=== PATIENT | female | born 1985 | race Caucasian/White ===

== ENCOUNTER 2024-11-28 18:49 | Emergency (ER) | payer OTHER, SELFPAY ==
[2024-11-28] VITALS (8 sets, daily range): BP systolic 99–116; BP diastolic 61–83; PULSE 74–89; RESP 18–20; TEMP 36.3–37.2; O2SAT 99–100; BMI 25.5
--- NOTE | 2024-11-28 19:35 | CT_ITS ---
PROCEDURE INFORMATION: Exam: CT Abdomen And Pelvis With Contrast Exam date and time: 11/28/2024 8:39 PM Age: 39 years old Clinical indication: Abdominal pain; Other: Rlq; Additional info: Rlq abd pain TECHNIQUE: Imaging protocol: Computed tomography of the abdomen and pelvis with contrast. Radiation optimization: All CT scans at this facility use at least one of these dose optimization techniques: automated exposure control; mA and/or kV adjustment per patient size (includes targeted exams where dose is matched to clinical indication); or iterative reconstruction. Contrast material: ISOVUE; Contrast volume: 75 ml; Contrast route: IV; COMPARISON: No relevant prior studies available. FINDINGS: Liver: Normal. No mass. Gallbladder and biliary ducts: Normal. No calcified stones. No ductal dilation. Pancreas: Normal. No ductal dilation. Spleen: The spleen demonstrates punctate calcifications, consistent with remote granulomatous organism exposure. Adrenal glands: Normal. No mass. Kidneys and ureters: Normal. No hydronephrosis. Stomach and bowel: Constipation Appendix: Normal appendix (series 3, image [id number]). Intraperitoneal space: Mild amount of free fluid in the pelvis Vasculature: Unremarkable. No abdominal aortic aneurysm. Lymph nodes: Unremarkable. No enlarged lymph nodes. Urinary bladder: Unremarkable as visualized. Reproductive: 4.4 cm simple cyst right ovary. Differential includes infection and torsion. If torsion is suspected, recommend duplex assessment of the ovary. Bones/joints: Unremarkable. No acute fracture. Soft tissues: Unremarkable. IMPRESSION: 1. 4.4 cm simple cyst right ovary. Differential includes infection and torsion. If torsion is suspected, recommend duplex assessment of the ovary. 2. Normal appendix (series 3, image [id number]). 3 mild amount of free fluid in the pelvis THIS REPORT CONTAINS FINDINGS THAT MAY BE CRITICAL TO PATIENT CARE. The findings were verbally communicated via telephone conference with Charlie Mahmood at 9:55 PM EST on 11/28/2024. The findings were acknowledged and understood.
--- NOTE | 2024-11-28 19:40 | ED_ITS ---
Discharge Plan Disposition Patient Disposition: Home, Self-Care Prescriptions Prescriptions: New ondansetron 4 mg tablet,disintegrating 4 mg PO Q6H PRN (Reason: nausea and vomiting) 5 Days Qty: 20 0RF nitrofurantoin monohyd/m-cryst 100 mg capsule 100 mg PO BID 5 Days Qty: 10 0RF Rx Instructions: must administer with a meal/food hydrocodone-acetaminophen 5-325 mg tablet 1 tab PO Q6H PRN (Reason: pain) 3 Days Qty: 12 0RF Referrals Follow up/Referrals: Calli Donaldson DO [Staff Physician] - See instructions Sandra Emmanuel [Primary Care Provider] - See instructions Activity Restrictions/Add. Instructions Additional Instructions/Restrictions: You have a 4 cm hemorrhagic cyst that is likely the cause of your symptoms. No evidence of ovarian torsion as discussed however if you have intermittent severe pain that is intolerable please return to the emergency department otherwise follow-up closely with Dr. Donaldson. Please call tomorrow to make next available appointment. Clinical Impressions Clinical Impression: Abdominal pain, RLQ, Hemorrhagic ovarian cyst, UTI (urinary tract infection) Instructions Patient Instructions: DI for Acute Abdominal Pain Print Language Print Language: [place] Discharge ED Provider: Charlie Mahmood General Adult HPI General Chief complaint: Abdominal Pain Stated complaint: abdominal pain Time Seen by Provider: 11/28/24 19:28 Mode of Arrival: Ambulatory Source of Information: Patient Limitations: No Limitations Description of Symptoms (Recalled from ER Triage Doc. by RN): Pt here w/ c/o RLQ pain + nausea since 1500 today. Pain rated 8/10. tylenol @ 1800 History of Present Illness HPI narrative: Patient is a 39-year-old female presenting today with right lower quadrant abdominal pain. States this started earlier this afternoon around 3 PM and was sudden onset. Time of onset to time of maximal intensity was only a matter of minutes. Since that time it has been severe worsening with any type of movement or touch. No history of ovarian cyst that she is aware of she has not had an appendectomy she has had a cholecystectomy but has all of her other organs otherwise. She denies any fevers frequency urgency dysuria of urine hematuria changes in bowel movement changes in vaginal discharge or vaginal bleeding. No other significant past medical history aside from seasonal allergies. Related Data Previous Rx's ?Medication ?Instructions ?Recorded hydrocodone 5 mg-acetaminophen 325 1 tab PO Q6H PRN pain 3 days #12 11/28/24 mg tablet tabs nitrofurantoin 100 mg PO BID 5 days #10 caps 11/28/24 monohydrate/macrocrystals 100 mg capsule ondansetron 4 mg disintegrating 4 mg PO Q6H PRN nausea and 11/28/24 tablet vomiting 5 days #20 tabs Allergies Allergy/AdvReac Type Severity Reaction Status Date / Time erythromycin base Allergy Unknown Verified 11/28/24 19:38 allergy reaction [facility] Disclaimer: The information contained in this section may have been updated after the patient was seen, as this information can be updated by other users. Social History Smoking Status: Current every day smoker alcohol intake: never current occupational status: other Travel in the last 8 weeks: None ROS Obtained: Yes All systems reviewed & no additional complaints except as documented Physical Exam General General appearance: alert and in no apparent distress Respiratory Respiratory exam: Present normal lung sounds bilaterally Cardiovascular Cardiovascular exam: Present regular rate and normal rhythm Abdominal Exam Abdominal exam: Present soft and tenderness (Patient has significant tenderness to the right lower quadrant she does have rebound particularly when palpating the left lower quadrant and also significant pain with any type of movement in her lower extremities) Neurological Exam Neurological exam: Present alert and oriented X3 Medical Decision Making Medical Records Screening: Per USPSTF and CDC recommendations, given the prevalence of disease in our region, it is our hospital?s policy to screen for HIV and viral Hepatitis for all patients aged 18 and over and those with ongoing risk factors. Antoni Inquiry Pt receiving controlled substance: No Vital Signs: 11/28/24 18:51 11/28/24 20:01 11/28/24 20:30 Temperature 98.9 F Temperature Source Oral Pulse Rate 74 81 Pulse Rate [Apical] 89 Respiratory Rate 20 Blood Pressure 99/64 L 101/63 L Blood Pressure [Right Arm] 115/83 Blood Pressure Mean [Right Arm] 93 02 Sat by Pulse Oximetry 100 99 100 Oxygen Delivery Method Room Air 11/28/24 21:00 11/28/24 22:00 11/28/24 22:30 Temperature Temperature Source Pulse Rate 74 76 89 Pulse Rate [Apical] Respiratory Rate Blood Pressure 111/61 110/74 116/72 Blood Pressure [Right Arm] Blood Pressure Mean [Right Arm] 02 Sat by Pulse Oximetry 100 100 99 Oxygen Delivery Method 11/28/24 23:00 Temperature Temperature Source Pulse Rate 79 Pulse Rate [Apical] Respiratory Rate Blood Pressure 102/67 L Blood Pressure [Right Arm] Blood Pressure Mean [Right Arm] 02 Sat by Pulse Oximetry 99 Oxygen Delivery Method Lab Data Lab results reviewed: Yes I reviewed the patient's lab results. Lab Results 11/28/24 19:42: Urine Color Yellow, Urine Appearance Clear, Urine pH 6.0, Ur Specific [place] 1.015, Urine Protein Trace, Urine Glucose (UA) Trace, Urine Ketones Negative, Urine Blood 1+ A, Urine Nitrate Positive A, Urine Bilirubin Negative, Urine Urobilinogen 4.0, Ur Leukocyte Esterase Negative, Urine RBC 50- 100, Urine WBC 3-5, Ur Squamous Epith Cells 5-10, Urine Bacteria 2+, Urine Mucus 1+ 11/28/24 19:54: WBC 11.0 H, RBC 4.49, Hgb 14.0, Hct 40.2, MCV 89.5, MCH 31.2, MCHC 34.8, RDW 12.0, Plt Count 236, MPV 10.3, Neut % (Auto) 67.1, Lymph % (Auto) 26.1, Thomas % (Auto) 5.3, Eos % (Auto) 0.5, Baso % (Auto) 0.6, Neut # (Auto) 7.4, Lymph # (Auto) 2.9, Thomas # (Auto) 0.6, Eos # (Auto) 0.1, Baso # (Auto) 0.1, S odium 134 L, Potassium 4.0, Chloride 103, Carbon Dioxide 22, Anion Gap 13.0, BUN 9, Creatinine 0.80, Estimated Creat Clear 105, Estimated GFR 79, Est GFR ( Amer) 96, Glucose 95, Calcium 9.0, Total Bilirubin 1.2, AST 29, ALT 20, Alkaline Phosphatase 53, Total Protein 7.2, Albumin 4.4, Globulin 2.8, Albumin/Globulin Ratio 1.6, Serum HCG, Qual Negative 11/28/24 19:54 11/28/24 19:54 Orders (Tests/Meds): ED MEDICATIONS Discontinued Medications Generic Name Dose Route Start Last Admin Trade Name Freq PRN Reason Stop Dose Admin Acetaminophen 1,000 mg 11/28/24 19:35 11/28/24 19:47 Acetaminophen 1,000mg/100ml Vial IV 11/28/24 19:36 1,000 mg ONCE ONE Administration Lactated Ringer's 1,000 mls @ 999 mls/hr 11/28/24 19:45 11/28/24 19:45 Lactated Ringer's 1000 Ml Bag IV 11/28/24 20:45 999 mls/hr .Q1H1M WYATT Administration Iopamidol 75 ml 11/28/24 20:40 11/28/24 20:41 Iopamidol-370 (76%);100ml Bottle IV 11/28/24 20:41 75 ml ONCE ONE Administration Morphine Sulfate 4 mg 11/28/24 22:12 11/28/24 22:17 Morphine 4mg/Ml Syringe IV 11/28/24 22:13 4 mg ONCE ONE Administration Ondansetron HCl 4 mg 11/28/24 19:35 11/28/24 19:45 Ondansetron 4mg/2ml Vial IV 11/28/24 19:36 4 mg ONCE ONE Administration Ondansetron HCl 4 mg 11/28/24 22:12 11/28/24 22:16 Ondansetron 4mg/2ml Vial IV 11/28/24 22:13 4 mg ONCE ONE Administration Sodium Chloride 10 ml 11/28/24 20:40 11/28/24 20:41 Sodium Chloride 0.9% 10ml Syr (Rad Only) IV 11/28/24 20:41 10 ml ONCE ONE Administration ORDERS Category Date Time Status CT abdomen pelvis w con Stat Cat Scan 11/28/24 19:35 Completed US transvaginal Stat Exams 11/28/24 20:47 Completed CBC w/Auto Diff [Complete Blood Count Auto Diff] Stat Lab 11/28/24 19:54 Completed CMP [Comprehensive Metabolic Panel] Stat Lab 11/28/24 19:54 Completed HCG Qualitative, Serum Stat Lab 11/28/24 19:54 Completed UA [Urinalysis and Microscopic] Stat Lab 11/28/24 19:42 Completed Urine Culture Stat Micro 11/28/24 19:42 Received Medical Decision Narrative: 39-year-old with significant right lower quadrant pain that seem to have started suddenly. Differential includes ruptured ovarian cyst, ovarian torsion, kidney stone, perforated viscus, acute appendicitis etc. Will get a contrasted CT scan for further evaluation and management. IV fluids pain medicine nausea medicine have been administered. She specifically asked to not have opiates as they make her sick so IV Tylenol has been administered. Will reassess after her CT scan is performed and labs are returned. CT scan performed which I personally interpreted which shows a right adnexal cyst that is 4 cm in its greatest diameter with some free fluid surrounding this concerning for hemorrhagic or ruptured ovarian cyst. Given its size transvaginal ultrasound was ordered to rule out ovarian torsion this was read by radiology. No evidence of torsion cyst is complex most likely hemorrhagic but will need follow-up with [employer]. There is some free fluid in the cul-de-sac. Labs are essentially unremarkable however patient has significant pain after returning to ultrasound we will escalate pain control to morphine and Zofran and reassess. Of note patient's urinalysis did have 1+ blood as well as were nitrate positive with 3-5 whites but significant squames. Possibly a contaminant however given patient's lower/pelvic discomfort we will go ahead and treat for cystitis as well. Reassessment 1103 patient was given morphine and Zofran with improvement in symptoms she still is having some discomfort but nothing severe at this point. No clinical evidence of torsion but that is still remains a possibility with regards to intermittent torsion. She has been given close follow-up instructions with Dr. Calli Donaldson and told to come back to the emergency part with any intractable or severe worsening of her symptoms. I did find out that she took a Pyridium which may be the cause of her abnormal urinalysis but antibiotics were prescribed nonetheless given the above rationale. Patient was discharged in improved and stable condition. Critical Care Critical Care Time Critical Care Time: No
[2024-11-28] MEDS: ONDANSETRON 4MG/2ML VIAL 4 MG IV ×2 (19:45→22:16)
[2024-11-28] MEDS: LACTATED RINGERS 1000ML 1,000 ML 999 ML IV (19:45)
[2024-11-28 19:46] LABS: Microscopic, Urine URINE MICROSCOPIC (MICROSCOPIC)
[2024-11-28] MEDS: ACETAMINOPHEN 1,000MG/100ML VIAL 1000 MG IV (19:47)
[2024-11-28 19:48] LABS: Appearance,Urine CLEAR (Clear); Bilirubin,Urine Negative (Negative); Blood, Urine 1+ (Negative); Color,Urine YELLOW (Yellow); Glucose,Urine (UA) TRACE (Negative); Ketones,Urine Negative (Negative); Leukocyte Esterase,Urine Negative (Negative); Nitrate,Urine POSITIVE (Negative); Protein,Urine TRACE (Negative); Specific Gravity, Urine 1.015 (1.005-1.030)
[2024-11-28 20:03] LABS: Basophils # 0.1 K/mm3 (0-0.2); Basophils % 0.6 % (0.1-2.0); Eosinophils # 0.1 K/mm3 (0.0-0.4); Eosinophils % 0.5 % (0.1-12.0); Hematocrit 40.2 % (37.0-47.0); Lymphocytes # 2.9 K/mm3 (0.7-4.5); Lymphocytes % 26.1 % (10-50); Mean Corpuscular HGB Conc 34.8 g/dL (31.8-35.4); Mean Corpuscular Hemoglobin 31.2 pg (27.0-31.2); Mean Corpuscular Volume 89.5 fl (81-99); Mean Platelet Volume 10.3 fl (7.4-10.4); Monocytes # 0.6 K/mm3 (0.1-1.0); Monocytes % 5.3 % (1.7-9.3); Neutrophils # 7.4 K/mm3 (1.8-7.8); Neutrophils % 67.1 % (37.0-80.0); Red Blood Count 4.49 M/mm3 (4.20-5.40)
[2024-11-28 20:11] LABS: RBC,Urine 50-100 #/hpf (0-3)
[2024-11-28 20:12] LABS: Bacteria,Urine 2+ /lpf; Mucus,Urine 1+ /lpf
[2024-11-28 20:18] LABS: Alanine Aminotransferase 20 U/L (12-78); Albumin Level 4.4 g/dl (3.5-5.0); Albumin/Globulin Ratio 1.6 (1.1-1.8); Alkaline Phosphatase 53 U/L (38-126); Aspartate Amino Transferase 29 U/L (14-36); Bilirubin,Total 1.2 mg/dl (0.2-1.3); Blood Urea Nitrogen 9 mg/dl (7-17); Carbon Dioxide 22 mmol/L (22.0-30.0); Chloride 103 mmol/L (98-107); Creatinine Clearance Estimated 105 mL/min (50-200); Estimated Glomerular Filt Rate 79 ml/min (>60); GFR (African American) 96 ML/MIN (>60); Globulin 2.8 g/dL (1.3-3.2); Glucose 95 mg/dl (74-100); Sodium 134 mmol/L (136-145); Total Protein,Serum 7.2 g/dl (6.3-8.2)
[2024-11-28 20:33] LABS: HCG Qualitative, Serum Negative (Negative)
[2024-11-28] MEDS: SODIUM CHLORIDE 0.9% 10ML SYR (RAD ONLY) 10 ML IV (20:41)
[2024-11-28] MEDS: IOPAMIDOL-370 (76%);100ML BOTTLE 75 ML IV (20:41)
--- NOTE | 2024-11-28 20:47 | US_ITS ---
PROCEDURE INFORMATION: Exam: US Duplex Artery or Vein of the Abdominal and/or Reproductive Organs, Limited Ovaries Exam date and time: 11/28/2024 9:16 PM Age: 39 years old Clinical indication: Pelvic pain; Additional info: Sudden rlq abd pain, 5 cm adnexal cyst, R/O torsion TECHNIQUE: Imaging protocol: Real-time duplex ultrasound scan of the arterial or venous flow with lambert scale, color Doppler flow and spectral waveform analysis with image documentation. Limited duplex exam focused on the ovaries. Duplex exam was performed to evaluate for torsion and other vascular conditions. COMPARISON: CT ABDOMEN PELVIS W CON 11/28/2024 8:39 PM FINDINGS: Right ovary/adnexa: Peak systolic velocity right ovary 9 cm/s.. Right ovary 6.5x 4.7 x 2.8 cm total volume 41 cc Left ovary/adnexa: Peak systolic velocity in the left ovary 4 cm/s. Left ovary 2.8 x 1.8 x 2 cm total volume 5.3 cc IMPRESSION: 1. Peak systolic velocity in the left ovary 4 cm/s. 2. Peak systolic velocity right ovary 9 cm/s.. 3 No torsion PROCEDURE INFORMATION: Exam: US Pelvis, Transvaginal, Non-Obstetric Exam date and time: 11/28/2024 9:16 PM Age: 39 years old Clinical indication: Pelvic pain; Additional info: Sudden rlq abd pain, 5 cm adnexal cyst, R/O torsion TECHNIQUE: Imaging protocol: Real-time transvaginal pelvic (non-obstetric) ultrasound with image documentation. Transvaginal imaging was used for better evaluation of the endometrium, adnexa, and/or cervix. COMPARISON: CT ABDOMEN PELVIS W CON 11/28/2024 8:39 PM FINDINGS: Uterus: Uterus measures 9.5 x 3.9 x 5.7 cm total volume 111 cc. Endometrium 11.1 mm Right ovary/adnexa: Right ovary 6.5x 4.7 x 2.8 cm total volume 41 cc. Complex right ovarian cyst measures 3.96 x 3.3 x 3.5 cm and may represent hemorrhagic cyst . Left ovary/adnexa: Left ovary 2.8 x 1.8 x 2 cm total volume 5.3 cc Urinary bladder: Urinary bladder is limited. Intraperitoneal space: Mild to moderate free fluid in the cul-de-sac IMPRESSION: Complex right ovarian cyst measures 3.96 x 3.3 x 3.5 cm and may represent hemorrhagic cyst .
[2024-11-28 21:18] LABS: Platelet Count 236 K/mm3 (142-424)
--- NOTE | 2024-11-28 21:53 | PC.NURSE ---
on phone with JOLIE
[2024-11-28] MEDS: MORPHINE 4MG/ML SYRINGE 4 MG IV (22:17)
--- NOTE | 2024-11-28 22:25 | PC.NURSE ---
Pt reports to this RN with increased pain and active vomitting. md aware and orders were recieved. pt medicated, stable at this time.
== END 2024-11-28 23:18 | disposition home or self-care (01) ==
PROVIDERS: Emergency Provider Student in an Organized Health Care Education/Training Program; PCP Family Medicine
DX: N83.201 Unspecified ovarian cyst, right side (principal); N39.0 Urinary tract infection, site not specified; R10.31 Right lower quadrant pain; R11.0 Nausea
CPT/HCPCS: 74177; 76830; 80053; 81001; 84703; 85025; 87086; 96361; 96374; 96375; 99285; J0131; J2270; J2405; J7120; Q9967

== ENCOUNTER 2025-01-10 09:27 | Outpatient (CLI) | payer OTHER, SELFPAY ==
--- NOTE | 2025-01-10 09:27 | US_ITS ---
PROCEDURE: US TRANSVAGINAL CLINICAL INDICATION: Left Hemorrhagic ovarian Cyst COMPARISON: CT CT ABDOMEN PELVIS W CON from 11/28/2024 US US TRANSVAGINAL from 11/28/2024 FINDINGS: Transvaginal sonographic images of the pelvis were obtained. UTERUS: 9.4cm x 5.6cmx 4.6 cm anteverted with a combined endometrial thickness of 11.5mm. There is a nabothian cyst measuring 0.76 cm. A scar is seen. LEFT OVARY: [id number] with a volume of 14.6ml. There are several small peripheral follicles. There is a corpus luteum measuring 1.4 cm x 1.8 cm x 1.6 cm. RIGHT OVARY: 4cmx [id number] with a volume of 24.8ml. Within the right ovary there continues to be resolving hemorrhagic ovarian cyst. It measures 3.4 cm x 2.6 cm x 3.3 cm Both ovaries are seen and appear normal. Doppler flow to both ovaries are seen. There a small amount of fluid in the cul-de-sac. IMPRESSION: 1. Anteverted, bulky uterus. The endometrium is normal measuring 11.5 mm. 2. The left ovary is seen and contain several small peripheral follicles. There is a corpus luteum measuring 1.8 cm. 3. Within the right ovary there continues to be resolving hemorrhagic ovarian cyst. It measures 3.4 cm x 2.6 cm x 3.3 cm. Slightly smaller in size from her previous ultrasound 6 weeks ago. Suggest repeat ultrasound in 3 months. 4. There is a small amount of free fluid in the cul-de-sac. Dictated by: Jose Goel MD 01/10/2025 11:04 Jose Goel MD in [facility] 01/10/2025 11:04
== END 2025-01-10 23:59 | disposition home or self-care (01) ==
LOC: RAD 09:27
PROVIDERS: PCP Family Medicine; Visit Provider Nurse Practitioner Obstetrics & Gynecology
DX: N83.202 Unspecified ovarian cyst, left side (principal)
CPT/HCPCS: 76830

== ENCOUNTER 2025-01-16 14:05 | Outpatient (CLI) | payer OTHER, SELFPAY ==
--- NOTE | 2025-01-16 14:34 | ECG_ITS ---
APPROVED REPORT Exam: Resting ECG HR:85 bpm ECG Measurements Heart Rate 85 AXES MI 152 P 74 QRSd 85 QRS 67 QT 333 T 70 QTc 375 Conclusion SINUS RHYTHM POSSIBLE RIGHT VENTRICULAR CONDUCTION DELAY [RSR (QR) IN V1/V2] BORDERLINE ECG UNCONFIRMED REPORT Electronically signed by : Roberto Bennett MD 01/17/2025 08:50:32
[2025-01-16 14:41] LABS: Basophils % 0.3 % (0.1-2.0); Chloride 106 mmol/L (98-107); Eosinophils # 0.2 K/mm3 (0.0-0.4); Eosinophils % 2.2 % (0.1-12.0); Hematocrit 37.9 % (37.0-47.0); Lymphocytes # 3.5 K/mm3 (0.7-4.5); Lymphocytes % 46.8 % (10-50); Mean Corpuscular HGB Conc 34.3 g/dL (31.8-35.4); Mean Corpuscular Hemoglobin 31.1 pg (27.0-31.2); Mean Corpuscular Volume 90.7 fl (81-99); Mean Platelet Volume 10.9 fl (7.4-10.4); Monocytes # 0.4 K/mm3 (0.1-1.0); Monocytes % 5.4 % (1.7-9.3); Neutrophils # 3.3 K/mm3 (1.8-7.8); Platelet Count 204 K/mm3 (142-424); Potassium 3.8 mmoL/L (3.5-5.1); Red Blood Count 4.18 M/mm3 (4.20-5.40); Red Cell Distribution Width 12.6 % (11.5-17.5); Sodium 138 mmol/L (136-145); White Blood Count 7.4 K/mm3 (4.8-10.8)
[2025-01-16 14:43] LABS: Blood Urea Nitrogen 8 mg/dl (7-17); Estimated Glomerular Filt Rate 79 ml/min (>60); GFR (African American) 96 ML/MIN (>60)
[2025-01-16 14:44] LABS: Alanine Aminotransferase 16 U/L (12-78); Albumin/Globulin Ratio 1.6 (1.1-1.8); Alkaline Phosphatase 58 U/L (38-126); Anion Gap 7.8 mEq/L (5-15); Aspartate Amino Transferase 17 U/L (14-36); Bilirubin,Total 0.4 mg/dl (0.2-1.3); Calcium 8.6 mg/dl (8.4-10.2); Carbon Dioxide 28 mmol/L (22.0-30.0); Globulin 2.5 g/dL (1.3-3.2); Glucose 101 mg/dl (74-100); Total Protein,Serum 6.5 g/dl (6.3-8.2)
[2025-01-16 15:03] LABS: HCG,Quantitative < 2 mIU/ml (0-5.42)
== END 2025-01-16 23:59 | disposition home or self-care (01) ==
LOC: PREOP 14:06
PROVIDERS: PCP Family Medicine; Visit Provider Nurse Practitioner Obstetrics & Gynecology
DX: N92.1 Excessive and frequent menstruation with irregular cycle (principal); R94.31 Abnormal electrocardiogram [ECG] [EKG]
CPT/HCPCS: 80053; 84702; 85025; 93005

== ENCOUNTER 2025-01-18 07:47 | Day surgery (SDC) | payer OTHER, SELFPAY ==
[2025-01-16 14:49] VITALS: BMI 26.1
[2025-01-18] VITALS (9 sets, daily range): BP systolic 101–131; BP diastolic 62–79; PULSE 72–83; RESP 12–18; TEMP 36.1–36.5; O2SAT 99–100
[2025-01-18] MEDS: CEFAZOLIN SODIUM 2 GM in 0.9 % SODIUM CHLORIDE 100 ML IV (08:55)
--- NOTE | 2025-01-18 09:30 | EXP.OP.NOTE ---
Date of procedure: 01/18/25 Pre-op Diagnosis:: Menorrhagia Post-op Diagnosis:: Menorrhagia Procedure performed:: Hysteroscopy, dilation and curettage, NovaSure Surgeon:: Jose Goel MD Companion Caregiver(s):: None STATION MECHANIC HELPER:: Enrique Fournier Anesthesia: LMA Estimated blood loss (mL): 25 Clinical Note:: She is a 39-year-old lady who complains of heavy periods. She also complains of heavy, irregular periods. She says sometimes she is having a period every couple of weeks. She has tried an IUD in the past and she said it got embedded in the uterine wall. She does not want to try this again. She has had a bilateral salpingectomy as well. Operative findings:: She had a normal-appearing endometrial cavity that sounded to 8.5 cm. The rest of the examination was essentially normal. Both tubal ostia were seen and appeared normal. Operative note:: She was taken to the operating room where LMA anesthesia was found be adequate. She was prepped and draped in the normal sterile fashion in the lithotomy position. A weighted speculum was placed in the vagina and the anterior lip of the cervix was grasped with a tenaculum. The cervix was then dilated to approximately 6 mm. I then inserted a hysteroscope into the uterine cavity and the findings were as previously dictated. I then performed a gentle curettage with a medium curette. I then sounded the uterus and determine the length of the uterus. The length of the uterus was 5.5 cm and the width was 4.4 cm. I then inserted the NovaSure device and determine the width of the endometrial cavity. This was placed into the NovaSure device. I then ran the device through its program. I further inspected the endometrial cavity and was found to be completely charred. I then injected 30 cc of 0.5% ropivacaine at the 3:00, 5:00, 7:00, and 9:00 positions of the cervix. She tolerated procedure well and was taken to the recovery room in excellent condition. All sponge and instrument counts were correct. The estimated blood loss was less than 25 cc. Condition: stable Disposition: PACU Specimens:: Endometrial curettings Complications:: None
--- NOTE | 2025-01-18 09:38 | EXP.ANES.I ---
[facility] Anesthesia Record Part I Anesthesia Record I Intake, IV Amount: 500 Hydration: Adequate Estimated blood loss (mL): 24 Urine output (mL): 0 Blood Products used (#): none Blood Pressure: 109/67 SaO2: 99 Pulse Rate: 72 Airway Patency: Patent Respiratory Rate: 12 Temperature: 97.7 F Patient is:: Stable and Somnolent Stable to PACU at:: 09:30
[2025-01-18] MEDS: ROPIVACAINE 0.5% 30ML VIAL 300 MG (09:54)
--- NOTE | 2025-01-18 12:37 | EXP.ANES.II ---
[facility] Anesthesia Record Part II Anesthesia Record Part II Discharge Time: 09:50 Destination: Surgical Day Care (OP Surgery) PACU nurse assessment reviewed?: Yes Patient Condition:: Good Anesthesia Complications:: None Swallowing reflex intact?: Yes Airway Patency: Patent Cyanosis?: No Blood Pressure: 115/76 SaO2: 100 Respiratory Rate: 16 Pulse Rate: 75 Temperature: 97.7 F Mental Status: Alert & Oriented Pain level:: 0 Nausea and/or vomitting:: None Intake, IV Amount: 0 Hydration: Adequate
== END 2025-01-18 10:40 | disposition home or self-care (01) ==
PROVIDERS: PCP Family Medicine; Visit Provider Nurse Practitioner Obstetrics & Gynecology
PROC: 0U5B8ZZ Destruction of Endometrium, Via Natural or Artificial Opening Endoscopic (ICD-10-PCS; CPT 58563; principal; 2025-01-18 09:15)
DX: N92.0 Excessive and frequent menstruation with regular cycle (principal)
CPT/HCPCS: 58563; 96374; J0690; J1100; J2250; J2405; J3010

== ENCOUNTER 2025-04-18 08:36 | Outpatient (CLI) | payer OTHER, SELFPAY ==
--- NOTE | 2025-04-18 08:30 | US_ITS ---
PROCEDURE: US TRANSVAGINAL CLINICAL INDICATION: 3 month f/u on ovarian cyst COMPARISON: CT CT ABDOMEN PELVIS W CON from 11/28/2024 US US TRANSVAGINAL from 11/28/2024 US US TRANSVAGINAL from 01/10/2025 FINDINGS: Transvaginal sonographic images of the pelvis were obtained. UTERUS: 7.7 cm x 4.9 cm x 3.9 cm anteverted with a combined endometrial thickness of 8mm. A scar is seen LEFT OVARY: 1.8 cmx0.9 cmx1.3cm with a volume of 1.2ml. RIGHT OVARY: 2.1cmx 1.9 cmx1.9 cm with a volume of 4ml. The previously described 4 cm hemorrhagic cyst is now 1.5 cm Both ovaries are seen and appear normal. Doppler flow to both ovaries are seen. There is a small amount of fluid in the cul-de-sac. IMPRESSION: 1. Anteverted uterus normal in shape and size. The endometrium measures 8 mm. 2. Left ovary is difficult to see but appears normal and has good flow. 3. Right ovary continues to have a resolving hemorrhagic cyst measuring 1.5 cm. Previously it had been 4.4 cm. 4. There is small amount of fluid in the cul-de-sac, likely physiologic. Dictated by: Jose Goel MD 04/18/2025 11:18 Jose Goel MD in [facility] 04/18/2025 11:18
--- OUTSIDE RECORDS SUMMARY | 2025-04-18 08:39 | XMS_ITS | Data Portability ---
Author Organization [facility] ADMIN Address [address] [place] [id number] Assessment No assessment recorded. Plan of Treatment Reminders Order Date Submit Date Provider Last Modified By Organization Details Last Modified Time Details Appointments None record ed. Lab None record ed. Referral None record ed. Procedures None record ed. Surgeries None record ed. Imaging None record ed. Medication Orders None record ed. Patient TargetsNo targets recorded. Patient InstructionsNo instructions recorded. Reason for Referral None Reported. Results Created Date Observation Date Name Description Value Unit Range Abnormal Flag Note LastModifiedBy Organization Detail LastModifiedTime Result Notes Documentation Provider Name and Address Organization Details Recorded Time Pathology Study : reviewed, showed mild acute and chronic cholecystitis Kelly Duncan MD [address] [facility], [place], [address], [facility] & [place] 02/16/2023 10:17:46 Procedures Surgical History Date Name Laterality Status Provider Name and Address Organization Details Recorded Time Caesarean Section completed [facility] & [place] 01/28/2023 13:15:28 Dilation and curettage completed [facility] & [place] 01/28/2023 13:15:[address] [facility] & [place] 01/28/2023 13:19:25 Imaging Results None recorded. Procedure Notes None recorded. Medical Equipment None Reported. Allergies Allergen ID Allergen Name Allergen Category Reaction Reaction Severity Criticality Documentation Date Start Date Code Code System Note Provider Name and Address Organization Details Recorded Time 95337 azithromy diamond medicatio n Not available Not available Not available 01/28/2023 32643 RxNorm MelanyRandi diana, [facility] & [place] 13:12:28 86790 Erythroci n medicatio n Not available Not available Not available 01/28/2023 07462 3 RxNorm Melany Sanket crowder [facility], [place] - [facility] - [place] & [place] 3 13:12:48 Medications Name Sig Start Date Stop Date Status Note LastModified by Organization Details LastModified Time amoxicillin 500 mg capsule TAKE 1 CAPSULE BY MOUTH THREE TIMES DAILY FOR 7 DAYS active Not Available Not Available No t Available ibuprofen 800 mg tablet TAKE 1/2 TO 1 TABLET BY MOUTH EVERY 6 TO 8 HOURS FOR 5 DAYS NEEDED 01/28 completed Not Available Not Available Not Available fluconazole 150 mg tablet TAKE 1 TABLET BY MOUTH EVERY DAY FOR 2 DAYS NEEDED active Not Available Not Available No t Available acetaminoph en 500 mg tablet TAKE 1 TABLET BY MOUTH EVERY 6 HOURS NEEDED FOR MODERATE PAIN active Not Available Not Available No t Available oxycodone-a cetaminophe n 5 mg-325 mg tablet TAKE 1 TABLET BY MOUTH EVERY 6 HOURS NEEDED FOR SEVERE PAIN active Not Available Not Available No t Available esomeprazol e magnesium 40 mg capsule,del ayed release TAKE 1 CAPSULE BY MOUTH EVERY DAY active Not Available Not Available No t Available triamcinolo ne acetonide 0.1 % topical ointment APPLY THIN LAYER TOPICALLY TO THE AFFECTED AREA TWICE DAILY NEEDED active Not Available Not Available No t Available nystatin 100,000 unit/gram topical cream APPLY TOPICALLY TO THE AFFECTED AREA TWICE DAILY active Not Available Not Available No t Available ibuprofen 600 mg tablet TAKE 1 TABLET BY MOUTH EVERY 6 HOURS NEEDED FOR MODERATE PAIN active Not Available Not Available No t Available methylpredn isolone 4 mg tablets in a dose pack TAKE DIRECTED FOR CONGESTIO N 01/28 completed Not Available Not Available Not Available loratadine 10 mg tablet TAKE 1 TABLET BY MOUTH EVERY DAY active Not Available Not Available No t Available amoxicillin 875 mg-potassiu m clavulanate 125 mg tablet TAKE 1 TABLET BY MOUTH EVERY 12 HOURS FOR 5 DAYS active Not Available Not Available No t Available Vitals Date Recorded Body weight Body mass index (BMI) Body height Body temperature Oxygen saturation Oxygen saturation in Arterial blood by Pulse oximetry Heart rate Systolic blood pressure Diastolic blood pressure Provider Name and Address Organization Details Last Updated DateTime 3 07779.2 8 g 24.4 kg/m2 165.1 cm 97.5 [degF] 100 % 100 % 72 /min 98 mm[Hg] 60 mm[Hg] Melany PEREZ [facility] & [place] 13:11:26 Social History Question Answer Notes LastModified by Organizat ion Details LastModified Time Tobacco Smoking Status Current Every Day Smoker Melany diana, [facility] & [place] 01/28/2023 13:14:48 How Much Tobacco Do You Smoke? 1 PPD Information not available 01/28/2023 Sex: Unknown Functional Status Question Answer Note LastModified by Organizat ion Details LastModified Time Do you use any illicit or recreational drugs? No Information not available 01/28/2023 What is your level of alcohol consumption? None Information not available 01/28/2023 Mental Status None recorded. Family History Relationship Description Onset Age of this Age Resolved Age Notes LastModified by Organization Details LastModified Time Father Malignant neoplasm of liver Not available 07/2023 13:13:54 Father Heart disease Not available 07/2023 13:14:00 Mother Hypertensive disorder Not available 07/2023 13:14:07 Mother Hyperlipidem ia Not available 07/2023 13:14:21 Mother Diabetes mellitus Not available 07/2023 13:14:29 Medical History No medical history recorded. Gynecological HistoryNo gynecological history recorded. Obstetrics History GPAL:G 0 P 0 0 0 0 Past Encounters Encounter ID Performer Location Encounter Start Date Encounter Closed Date Diagnosis/Indication Diagnosis SNOMED-CT Code Diagnosis ICD10 Code Diagnosis Note [id number] Kelly Duncan MD [facility] General Surgery [address] [facility] [place] [address] 01/28/2023 12:55:37 01/28/2023 14:05:06 Cholelithiasis without obstruction 20095091 K80.20 Symptomati c cholelithi asis. I have scheduled the patient for robotic assisted laparoscop ic cholecyste ctomy. Informed consent was obtained. Risks, including but not limited to, bleeding, infection, damage to surroundin g structures were discussed. Patient expresses understand ing of plan, risks and benefits. Health Concerns Section Related Observation LastModified by Organization Detai ls LastModified Time None Recorded Concern Status LastModified by Organization Details LastModified Time None Recorded Advance Directives Directive None Recorded Payers Insurance Date Sequence Insurance Name Policy Number Policy Juarez Covered Member ID Juarez Member ID Guarantor Name 01/28/2023 1 *SELF PAY* Jimmy chang [place] 02/13/2023 1 [employer] [facility] (MEDICAID HMO) Liliana [place] [id number] Liliana Robbins Notes Date Note Type Note Provider Name and Address Organization Details Recorded Time 01/28/2023 text/html 37-year-old jacqueline n referred for abdominal pain. She is had several episodes of severe, sharp epigastric pain that radiates to her back and right shoulder. This has occurred postprandially and is associated with nausea and diarrhea. Right upper quadrant ultrasound showed gallstones and sludge. Kelly Duncan MD [address], [place], [address], [facility] - [place] & [place] 02/02/2023 11:38:57 OBGyn Episode No OBEpisode recorded.
== END 2025-04-18 23:59 | disposition home or self-care (01) ==
LOC: RAD 08:37
PROVIDERS: PCP Family Medicine; Visit Provider Nurse Practitioner Obstetrics & Gynecology
DX: N83.201 Unspecified ovarian cyst, right side (principal); N85.8 Other specified noninflammatory disorders of uterus
CPT/HCPCS: 76830

== ENCOUNTER 2025-08-08 14:20 | Outpatient (CLI) | payer OTHER, SELFPAY ==
--- NOTE | 2025-08-08 14:20 | MM_ITS ---
PROCEDURE INFORMATION: Exam: Bilateral Screening 3D Mammography Exam date and time: 08/08/2025 2:32 PM Age: 39 years old Clinical indication: Screening examination. TECHNIQUE: Imaging protocol: Bilateral Screening tomosynthesis and 2D mammography including computer-aided detection (CAD) when performed. COMPARISON: [facility] MAMMO W/CAD BILAT 12/20/2023 11:19 AM FINDINGS: MAMMOGRAPHY: Breast composition: There are scattered areas of fibroglandular density. Mass: None. Architectural distortion: None. Calcifications: No suspicious calcifications. Asymmetric density: None. Skin thickening: None. Axillary adenopathy: None. IMPRESSION: No mammographic evidence of malignancy. Annual screening is recommended unless otherwise clinically indicated. ASSESSMENT: BI-RADS Category 1: Negative.
== END 2025-08-08 23:59 | disposition home or self-care (01) ==
LOC: RAD 14:20
PROVIDERS: PCP Family Medicine; Visit Provider Nurse Practitioner Obstetrics & Gynecology
DX: Z12.31 Encounter for screening mammogram for malignant neoplasm of breast (principal); R92.323 Mammographic fibroglandular density, bilateral breasts
CPT/HCPCS: 77063; 77067